=== PATIENT | female | born 1985 | race American Indian/Alaskan Native ===

== ENCOUNTER 2021-04-25 16:50 | Emergency (ER) | payer SELFPAY ==
[2021-04-25 17:29] VITALS: BP 129/85
--- NOTE | 2021-04-25 19:43 | ED Elopement Review ---
ED Pt Elopement review - Results review Lab results: Patient eloped without my evaluation. - Call Back decision Pt Call Back Decision: No action required
--- NOTE | 2021-04-26 12:23 | Electrocardiograph Report ---
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
== END 2021-04-25 22:55 | disposition left against medical advice (07) ==
LOC: ED 16:50
DX: R07.89 Other chest pain (principal); Z53.21 Procedure and treatment not carried out due to patient leaving prior to being seen by health care provider
CPT/HCPCS: 93005